=== PATIENT | male | born 1960 | race Asian ===

== ENCOUNTER 2020-06-03 15:41 | Inpatient (IN) | payer OTHER, SELFPAY ==
[~2020-06-03] VITALS: Ht 167.6 cm; Wt 89.4 kg
[2020-06-03 15:46] VITALS: Ht 167.6 cm; Wt 89.4 kg
[2020-06-03 16:38] LABS: BASOPHIL % 0.2 % (0-2); PLATELET COUNT 133 x10^3mcL (130-400); RED CELL DISTRIBUTION WIDTH 12.6 % (11.5-14.5)
[2020-06-03 16:56] LABS: CALCIUM 8.1 mg/dL (8.5-10.1); CARBON DIOXIDE 23.8 mmol/L (21-32); CHLORIDE SERUM 102 mmol/L (98-107); CREATININE SERUM 1.1 mg/dL (0.7-1.3); GFR1 > 60 mL/min; GLUCOSE SERUM 141 mg/dL (74-106); POTASSIUM SERUM 3.3 mmol/L (3.5-5.1); SODIUM SERUM 137 mmol/L (136-145)
[2020-06-03 17:00] LABS: ALBUMIN 3.5 g/dL (3.4-5.0); ALKALINE PHOSPHATASE 70 U/L (46-116); ALT/SGPT 40 U/L (16-63); AST/SGOT 43 U/L (15-37); BILIRUBIN TOTAL 0.4 mg/dL (0.20-1.00); C REACTIVE PROTEIN 8.9 mg/dL (<=0.9); LACTIC DEHYDROGENASE (LDH) 275 U/L (100-190); TOTAL PROTEIN, SERUM 7.4 g/dL (6.4-8.2)
[2020-06-03] MEDS ORDERED: FORTAMET500 M1 PO (17:20)
[2020-06-03] MEDS ORDERED: ASPIRIN FOR CHI81 M1 PO (17:21)
[2020-06-03] MEDS ORDERED: ENALAPRIL MALEA10 MG (17:21)
[2020-06-03 17:22] LABS: UA SPECIFIC GRAVITY >=1.030 (1.005-1.035); microscopic required? YES; urine erythrocyte NEGATIVE (NEGATIVE)
[2020-06-03 20:17] VITALS: BP 134/67
[2020-06-04 05:50] VITALS: BP 143/75
[2020-06-04 06:59] LABS: BASOPHIL % 0.3 % (0-2); PLATELET COUNT 131 x10^3mcL (130-400); RED CELL DISTRIBUTION WIDTH 12.9 % (11.5-14.5)
[2020-06-04 07:35] LABS: ALKALINE PHOSPHATASE 70 U/L (46-116); ALT/SGPT 42 U/L (16-63); AST/SGOT 52 U/L (15-37); BILIRUBIN TOTAL 0.37 mg/dL (0.20-1.00); CALCIUM 8.2 mg/dL (8.5-10.1); CARBON DIOXIDE 25.2 mmol/L (21-32); CHLORIDE SERUM 102 mmol/L (98-107); CREATININE SERUM 1.1 mg/dL (0.7-1.3); GFR1 > 60 mL/min; GLUCOSE SERUM 164 mg/dL (74-106); POTASSIUM SERUM 3.9 mmol/L (3.5-5.1); SODIUM SERUM 139 mmol/L (136-145); TOTAL PROTEIN, SERUM 7.1 g/dL (6.4-8.2)
[2020-06-04 07:37] LABS: ALBUMIN 3.1 g/dL (3.4-5.0)
[2020-06-04 08:30] VITALS: BP 150/71
[2020-06-04 12:16] VITALS: BP 123/72
[2020-06-04 16:00] VITALS: BP 123/72
[2020-06-04 16:34] VITALS: BP 139/82
[2020-06-04 21:10] VITALS: BP 134/77
[2020-06-05 04:58] VITALS: BP 155/78
[2020-06-05 07:04] LABS: BILIRUBIN DIRECT 0.18 mg/dL (0.0-0.2); BILIRUBIN TOTAL 0.4 mg/dL (0.20-1.00); TOTAL PROTEIN, SERUM 7.6 g/dL (6.4-8.2)
[2020-06-05 07:05] LABS: ALBUMIN 3.3 g/dL (3.4-5.0)
[2020-06-05 07:31] LABS: ALKALINE PHOSPHATASE 73 U/L (46-116); ALT/SGPT 45 U/L (16-63); AST/SGOT 71 U/L (15-37); BILIRUBIN TOTAL 0.4 mg/dL (0.20-1.00); CALCIUM 8.7 mg/dL (8.5-10.1); CARBON DIOXIDE 26.2 mmol/L (21-32); CHLORIDE SERUM 102 mmol/L (98-107); GFR1 > 60 mL/min; GLUCOSE SERUM 151 mg/dL (74-106); MAGNESIUM 2.2 mg/dL (1.8-2.4); SODIUM SERUM 138 mmol/L (136-145); TOTAL PROTEIN, SERUM 7.6 g/dL (6.4-8.2)
[2020-06-05 07:33] LABS: ALBUMIN 3.3 g/dL (3.4-5.0)
[2020-06-05 07:49] LABS: BASOPHIL % 0.2 % (0-2); PLATELET COUNT 167 x10^3mcL (130-400); RED CELL DISTRIBUTION WIDTH 11.9 % (11.5-14.5)
[2020-06-05 08:35] VITALS: BP 136/71
[2020-06-05 11:23] VITALS: BP 132/78
[2020-06-05 16:11] VITALS: BP 141/72
[2020-06-05 21:23] VITALS: BP 142/71
[2020-06-06 05:56] VITALS: BP 1286/64
[2020-06-06 07:33] LABS: BASOPHIL % 0.2 % (0-2); PLATELET COUNT 207 x10^3mcL (130-400); RED CELL DISTRIBUTION WIDTH 12.2 % (11.5-14.5)
[2020-06-06 07:37] LABS: ALBUMIN 3.3 g/dL (3.4-5.0); ALKALINE PHOSPHATASE 83 U/L (46-116); ALT/SGPT 62 U/L (16-63); AST/SGOT 95 U/L (15-37); BILIRUBIN TOTAL 0.4 mg/dL (0.20-1.00); CALCIUM 8.6 mg/dL (8.5-10.1); CHLORIDE SERUM 103 mmol/L (98-107); CREATININE SERUM 1.1 mg/dL (0.7-1.3); GFR1 > 60 mL/min; GLUCOSE SERUM 163 mg/dL (74-106); MAGNESIUM 2.5 mg/dL (1.8-2.4); POTASSIUM SERUM 4.1 mmol/L (3.5-5.1); SODIUM SERUM 142 mmol/L (136-145); TOTAL PROTEIN, SERUM 7.7 g/dL (6.4-8.2)
[2020-06-06 07:45] LABS: BILIRUBIN DIRECT 0.21 mg/dL (0.0-0.2); BILIRUBIN TOTAL 0.4 mg/dL (0.20-1.00); TOTAL PROTEIN, SERUM 7.7 g/dL (6.4-8.2)
[2020-06-06 07:49] LABS: ALBUMIN 3.3 g/dL (3.4-5.0)
[2020-06-06 08:37] VITALS: BP 147/65
[2020-06-06 12:35] VITALS: BP 120/72
[2020-06-06 16:50] VITALS: BP 131/76
[2020-06-06 21:42] VITALS: BP 133/78
[2020-06-07 06:12] VITALS: BP 143/45
[2020-06-07 07:35] LABS: ALKALINE PHOSPHATASE 89 U/L (46-116); ALT/SGPT 103 U/L (16-63); AST/SGOT 140 U/L (15-37); BILIRUBIN TOTAL 0.5 mg/dL (0.20-1.00); CALCIUM 8.3 mg/dL (8.5-10.1); CARBON DIOXIDE 25.6 mmol/L (21-32); CHLORIDE SERUM 106 mmol/L (98-107); GFR1 > 60 mL/min; GLUCOSE SERUM 148 mg/dL (74-106); MAGNESIUM 2.9 mg/dL (1.8-2.4); POTASSIUM SERUM 4.1 mmol/L (3.5-5.1); SODIUM SERUM 142 mmol/L (136-145); TOTAL PROTEIN, SERUM 6.9 g/dL (6.4-8.2)
[2020-06-07 08:00] LABS: ALBUMIN 3.1 g/dL (3.4-5.0); BILIRUBIN DIRECT 0.21 mg/dL (0.0-0.2); BILIRUBIN TOTAL 0.5 mg/dL (0.20-1.00); TOTAL PROTEIN, SERUM 6.5 g/dL (6.4-8.2)
[2020-06-07 08:34] VITALS: BP 140/90
[2020-06-07 08:58] LABS: BASOPHIL % 0.2 % (0-2); PLATELET COUNT 214 x10^3mcL (130-400); RED CELL DISTRIBUTION WIDTH 13.4 % (11.5-14.5)
[2020-06-07 13:06] VITALS: BP 138/70
[2020-06-07 16:37] VITALS: BP 123/67
[2020-06-07 22:04] VITALS: BP 121/61
[2020-06-08 06:02] VITALS: BP 130/73
[2020-06-08 08:16] LABS: ALBUMIN 3.1 g/dL (3.4-5.0); ALKALINE PHOSPHATASE 115 U/L (46-116); ALT/SGPT 111 U/L (16-63); AST/SGOT 103 U/L (15-37); BILIRUBIN TOTAL 0.81 mg/dL (0.20-1.00); CALCIUM 8.8 mg/dL (8.5-10.1); CARBON DIOXIDE 27.7 mmol/L (21-32); CHLORIDE SERUM 107 mmol/L (98-107); GFR1 > 60 mL/min; GLUCOSE SERUM 139 mg/dL (74-106); MAGNESIUM 2.7 mg/dL (1.8-2.4); POTASSIUM SERUM 4.6 mmol/L (3.5-5.1); SODIUM SERUM 144 mmol/L (136-145); TOTAL PROTEIN, SERUM 7.4 g/dL (6.4-8.2)
[2020-06-08 08:30] VITALS: BP 123/61
[2020-06-08 09:38] LABS: BILIRUBIN DIRECT 0.27 mg/dL (0.0-0.2); BILIRUBIN TOTAL 0.8 mg/dL (0.20-1.00); TOTAL PROTEIN, SERUM 7.3 g/dL (6.4-8.2)
[2020-06-08 09:42] LABS: ALBUMIN 3.3 g/dL (3.4-5.0)
[2020-06-08 09:58] LABS: BASOPHIL % 0.1 % (0-2); PLATELET COUNT 255 x10^3mcL (130-400)
[2020-06-08 12:45] VITALS: BP 144/73
[2020-06-08 16:45] VITALS: BP 140/73
[2020-06-08 21:15] VITALS: BP 136/71
[2020-06-09 05:25] VITALS: BP 135/75
[2020-06-09 08:18] VITALS: BP 91/48
[2020-06-09 13:16] VITALS: BP 128/72
[2020-06-09 16:08] VITALS: BP 103/56
[2020-06-09 19:30] VITALS: BP 123/67
[2020-06-10 05:55] VITALS: BP 134/76
[2020-06-10 07:49] LABS: CALCIUM 8.8 mg/dL (8.5-10.1); CARBON DIOXIDE 23.1 mmol/L (21-32); CHLORIDE SERUM 102 mmol/L (98-107); CREATININE SERUM 1.1 mg/dL (0.7-1.3); GFR1 > 60 mL/min; GLUCOSE SERUM 134 mg/dL (74-106); MAGNESIUM 2.6 mg/dL (1.8-2.4); SODIUM SERUM 138 mmol/L (136-145)
[2020-06-10 08:21] LABS: PLATELET COUNT 314 x10^3mcL (130-400); RED CELL DISTRIBUTION WIDTH 12.4 % (11.5-14.5)
[2020-06-10 08:33] VITALS: BP 153/76
[2020-06-10 09:01] LABS: BASOPHIL % 0 % (0-2)
[2020-06-10 12:18] VITALS: BP 114/54
[2020-06-10 16:19] VITALS: BP 121/65
[2020-06-10 19:10] VITALS: BP 118/72
[2020-06-11 05:56] VITALS: BP 127/75
[2020-06-11 07:32] LABS: BASOPHIL % 0.1 % (0-2); PLATELET COUNT 356 x10^3mcL (130-400); RED CELL DISTRIBUTION WIDTH 12.4 % (11.5-14.5)
[2020-06-11 07:45] LABS: ALKALINE PHOSPHATASE 145 U/L (46-116); ALT/SGPT 54 U/L (16-63); AST/SGOT 63 U/L (15-37); BILIRUBIN DIRECT 0.22 mg/dL (0.0-0.2); BILIRUBIN TOTAL 0.92 mg/dL (0.20-1.00); CARBON DIOXIDE 23.9 mmol/L (21-32); CHLORIDE SERUM 104 mmol/L (98-107); GFR1 > 60 mL/min; GLUCOSE SERUM 119 mg/dL (74-106); POTASSIUM SERUM 4.5 mmol/L (3.5-5.1); SODIUM SERUM 140 mmol/L (136-145); TOTAL PROTEIN, SERUM 7.4 g/dL (6.4-8.2)
[2020-06-11 07:56] LABS: ALBUMIN 2.7 g/dL (3.4-5.0)
[2020-06-11 09:11] VITALS: BP 117/68
[2020-06-11 12:00] VITALS: BP 114/59
[2020-06-11 15:47] VITALS: BP 107/53
[2020-06-11 20:52] VITALS: BP 109/59
[2020-06-12 05:19] VITALS: BP 114/52
[2020-06-12 07:53] VITALS: BP 118/62
[2020-06-12 12:20] VITALS: BP 131/69
[2020-06-12 15:54] VITALS: BP 100/59
[2020-06-12 21:15] VITALS: BP 114/59
[2020-06-13 05:25] VITALS: BP 125/73
[2020-06-13 07:22] LABS: BASOPHIL % 1.6 % (0-2); PLATELET COUNT 344 x10^3mcL (130-400); RED CELL DISTRIBUTION WIDTH 13.3 % (11.5-14.5)
[2020-06-13 07:40] LABS: CALCIUM 8.9 mg/dL (8.5-10.1); CARBON DIOXIDE 25.2 mmol/L (21-32); CHLORIDE SERUM 100 mmol/L (98-107); CREATININE SERUM 1.2 mg/dL (0.7-1.3); GFR1 > 60 mL/min; GLUCOSE SERUM 132 mg/dL (74-106); MAGNESIUM 2.6 mg/dL (1.8-2.4); POTASSIUM SERUM 4.7 mmol/L (3.5-5.1); SODIUM SERUM 136 mmol/L (136-145)
[2020-06-13 08:44] VITALS: BP 129/79
[2020-06-13 12:19] VITALS: BP 130/69
[2020-06-13 15:33] VITALS: BP 117/68
[2020-06-13 21:36] VITALS: BP 116/64
[2020-06-14 05:52] VITALS: BP 130/73
[2020-06-14 07:19] LABS: BASOPHIL % 0.1 % (0-2); PLATELET COUNT 325 x10^3mcL (130-400); RED CELL DISTRIBUTION WIDTH 12.2 % (11.5-14.5)
[2020-06-14 07:31] LABS: CALCIUM 8.3 mg/dL (8.5-10.1); CHLORIDE SERUM 99 mmol/L (98-107); CREATININE SERUM 1.2 mg/dL (0.7-1.3); GFR1 > 60 mL/min; GLUCOSE SERUM 190 mg/dL (74-106); MAGNESIUM 2.7 mg/dL (1.8-2.4); POTASSIUM SERUM 4.1 mmol/L (3.5-5.1); SODIUM SERUM 134 mmol/L (136-145)
[2020-06-14 08:41] VITALS: BP 138/85
[2020-06-14 11:43] VITALS: BP 137/73
[2020-06-14 16:46] VITALS: BP 123/72
[2020-06-14 21:33] VITALS: BP 112/66
[2020-06-15 05:42] VITALS: BP 111/62
[2020-06-15 08:02] LABS: CALCIUM 8.5 mg/dL (8.5-10.1); CARBON DIOXIDE 25.1 mmol/L (21-32); CHLORIDE SERUM 98 mmol/L (98-107); CREATININE SERUM 1.1 mg/dL (0.7-1.3); GFR1 > 60 mL/min; GLUCOSE SERUM 134 mg/dL (74-106); MAGNESIUM 2.6 mg/dL (1.8-2.4); POTASSIUM SERUM 4.6 mmol/L (3.5-5.1); SODIUM SERUM 133 mmol/L (136-145)
[2020-06-15 09:18] LABS: PLATELET COUNT 193 x10^3mcL (130-400); RED CELL DISTRIBUTION WIDTH 13.2 % (11.5-14.5)
[2020-06-15 09:39] VITALS: BP 115/63
[2020-06-15 11:45] LABS: BAND NEUTROPHIL 2 % (0-10); MONOCYTE 2 % (0-7); SEGMENTED NEUTROPHILS 92 % (37-75); rbc morphology (normal/abnorm) NORMAL (NORMAL)
[2020-06-15 11:46] LABS: PLATELET MORPHOLOGY PLATELETS NORMAL
[2020-06-15 13:36] VITALS: BP 128/68
[2020-06-15 17:18] VITALS: BP 110/68
[2020-06-16 06:17] VITALS: BP 135/76
[2020-06-16 08:03] LABS: CALCIUM 8.4 mg/dL (8.5-10.1); CHLORIDE SERUM 98 mmol/L (98-107); CREATININE SERUM 1.1 mg/dL (0.7-1.3); GFR1 > 60 mL/min; GLUCOSE SERUM 150 mg/dL (74-106); MAGNESIUM 2.7 mg/dL (1.8-2.4); POTASSIUM SERUM 4.2 mmol/L (3.5-5.1); SODIUM SERUM 137 mmol/L (136-145)
[2020-06-16 08:50] VITALS: BP 126/75
[2020-06-16 10:27] LABS: PLATELET COUNT 155 x10^3mcL (130-400); RED CELL DISTRIBUTION WIDTH 12.6 % (11.5-14.5)
[2020-06-16 12:10] LABS: BASOPHIL % 0 % (0-2)
[2020-06-16 12:34] VITALS: BP 121/69
[2020-06-16 17:49] VITALS: BP 139/77
[2020-06-16 21:21] VITALS: BP 138/76
[2020-06-17 06:36] VITALS: BP 13/74; BP 134/74
[2020-06-17 06:48] LABS: BASOPHIL % 0.2 % (0-2); PLATELET COUNT 143 x10^3mcL (130-400); RED CELL DISTRIBUTION WIDTH 12.5 % (11.5-14.5)
[2020-06-17 07:23] LABS: CARBON DIOXIDE 29.8 mmol/L (21-32); CHLORIDE SERUM 98 mmol/L (98-107); GLUCOSE SERUM 178 mg/dL (74-106); POTASSIUM SERUM 4.2 mmol/L (3.5-5.1); SODIUM SERUM 137 mmol/L (136-145)
[2020-06-17 07:24] LABS: CALCIUM 8.5 mg/dL (8.5-10.1); CREATININE SERUM 0.9 mg/dL (0.7-1.3); GFR1 > 60 mL/min; MAGNESIUM 2.8 mg/dL (1.8-2.4)
[2020-06-17 09:03] VITALS: BP 145/80
[2020-06-17 12:07] VITALS: BP 156/73
[2020-06-17 16:30] VITALS: BP 130/70
[2020-06-17 22:03] VITALS: BP 147/87
[2020-06-18 06:14] VITALS: BP 149/83
[2020-06-18 08:33] VITALS: BP 145/90
[2020-06-18 08:54] LABS: PLATELET COUNT 134 x10^3mcL (152-348)
[2020-06-18 08:57] LABS: RED CELL DISTRIBUTION WIDTH 13.4 % (12.1-16.2)
[2020-06-18 09:18] LABS: ALKALINE PHOSPHATASE 212 U/L (46-116); ALT/SGPT 66 U/L (16-63); AST/SGOT 51 U/L (15-37); BILIRUBIN TOTAL 1.39 mg/dL (0.20-1.00); CALCIUM 8.8 mg/dL (8.5-10.1); CARBON DIOXIDE 26.6 mmol/L (21-32); CHLORIDE SERUM 103 mmol/L (98-107); GFR1 > 60 mL/min; GLUCOSE SERUM 235 mg/dL (74-106); MAGNESIUM 2.6 mg/dL (1.8-2.4); POTASSIUM SERUM 4.2 mmol/L (3.5-5.1); SODIUM SERUM 139 mmol/L (136-145); TOTAL PROTEIN, SERUM 6.6 g/dL (6.4-8.2)
[2020-06-18 09:19] LABS: ALBUMIN 1.8 g/dL (3.4-5.0)
[2020-06-18 12:38] VITALS: BP 137/90
[2020-06-18 15:15] VITALS: BP 162/107
[2020-06-18 16:00] VITALS: BP 180/87
[2020-06-18 19:40] LABS: CALCIUM 8.7 mg/dL (8.5-10.1); CARBON DIOXIDE 24.6 mmol/L (21-32); CHLORIDE SERUM 102 mmol/L (98-107); GFR1 37 mL/min; GLUCOSE SERUM 412 mg/dL (74-106); SODIUM SERUM 141 mmol/L (136-145)
[2020-06-18 19:44] VITALS: BP 87/54
[2020-06-18 19:47] LABS: POTASSIUM SERUM 6.2 mmol/L (3.5-5.1)
[2020-06-18 23:59] LABS: CALCIUM 8.7 mg/dL (8.5-10.1); CARBON DIOXIDE 21.8 mmol/L (21-32); CREATININE SERUM 2.4 mg/dL (0.7-1.3)
[2020-06-19] VITALS (10 sets, daily range): BP systolic 76–121; BP diastolic 42–89
[2020-06-19 00:06] LABS: POTASSIUM SERUM 6.2 mmol/L (3.5-5.1)
[2020-06-19 06:50] LABS: PLATELET COUNT 158 x10^3mcL (152-348)
[2020-06-19 06:53] LABS: RED CELL DISTRIBUTION WIDTH 14.2 % (12.1-16.2)
[2020-06-19 07:19] LABS: BILIRUBIN TOTAL 3.17 mg/dL (0.20-1.00); CALCIUM 8.2 mg/dL (8.5-10.1); CARBON DIOXIDE 24.5 mmol/L (21-32); CREATININE SERUM 2.9 mg/dL (0.7-1.3); MAGNESIUM 2.6 mg/dL (1.8-2.4); POTASSIUM SERUM 5.3 mmol/L (3.5-5.1); TOTAL PROTEIN, SERUM 6.2 g/dL (6.4-8.2)
[2020-06-19 07:20] LABS: ALBUMIN 1.5 g/dL (3.4-5.0)
[2020-06-19 12:59] LABS: SEGMENTED NEUTROPHILS 96.6 % (37-75)
[2020-06-19 13:00] LABS: MONOCYTE 1.2 % (0-7); rbc morphology (normal/abnorm) NORMAL (NORMAL)
[2020-06-20] VITALS (9 sets, daily range): BP systolic 94–118; BP diastolic 38–61
[2020-06-20 02:29] LABS: PLATELET COUNT 152 x10^3mcL (130-400); RED CELL DISTRIBUTION WIDTH 14.2 % (11.5-14.5)
[2020-06-20 02:42] LABS: BAND NEUTROPHIL 1 % (0-10); BASOPHIL 0 % (0-2); MONOCYTE 2 % (0-7); SEGMENTED NEUTROPHILS 93 % (37-75); rbc morphology (normal/abnorm) NORMAL (NORMAL)
[2020-06-20 02:49] LABS: BILIRUBIN TOTAL 3.62 mg/dL (0.20-1.00); CARBON DIOXIDE 17.9 mmol/L (21-32); MAGNESIUM 2.6 mg/dL (1.8-2.4)
[2020-06-20 02:55] LABS: ALBUMIN 1.2 g/dL (3.4-5.0); TOTAL PROTEIN, SERUM 5.9 g/dL (6.4-8.2)
[2020-06-20 02:57] LABS: CREATININE SERUM 6.8 mg/dL (0.7-1.3)
== END 2020-06-20 22:15 | disposition expired | DRG 871 ==
LOC: ED 15:41 → IC 17:47 → DU 17:47 → IC 06-18 15:11
PROVIDERS: Emergency Medicine; Internal Medicine; Internal Medicine Pulmonary Disease; ADMIT Hospitalist; ATTEND Internal Medicine Infectious Disease
PROC: XW033E5 Introduction of Remdesivir Anti-infective into Peripheral Vein, Percutaneous Approach, New Technology Group 5 (ICD-10-PCS; principal; 2020-06-04)
PROC: 5A09357 Assistance with Respiratory Ventilation, Less than 24 Consecutive Hours, Continuous Positive Airway Pressure (ICD-10-PCS; 2020-06-06)
PROC: 5A09357 Assistance with Respiratory Ventilation, Less than 24 Consecutive Hours, Continuous Positive Airway Pressure (ICD-10-PCS; 2020-06-07)
PROC: XW13325 Transfusion of Convalescent Plasma (Nonautologous) into Peripheral Vein, Percutaneous Approach, New Technology Group 5 (ICD-10-PCS; 2020-06-08)
PROC: 5A09357 Assistance with Respiratory Ventilation, Less than 24 Consecutive Hours, Continuous Positive Airway Pressure (ICD-10-PCS; 2020-06-09)
PROC: 5A09357 Assistance with Respiratory Ventilation, Less than 24 Consecutive Hours, Continuous Positive Airway Pressure (ICD-10-PCS; 2020-06-10)
PROC: 5A09357 Assistance with Respiratory Ventilation, Less than 24 Consecutive Hours, Continuous Positive Airway Pressure (ICD-10-PCS; 2020-06-11)
PROC: 5A09357 Assistance with Respiratory Ventilation, Less than 24 Consecutive Hours, Continuous Positive Airway Pressure (ICD-10-PCS; 2020-06-15)
PROC: 5A09357 Assistance with Respiratory Ventilation, Less than 24 Consecutive Hours, Continuous Positive Airway Pressure (ICD-10-PCS; 2020-06-16)
PROC: 5A09357 Assistance with Respiratory Ventilation, Less than 24 Consecutive Hours, Continuous Positive Airway Pressure (ICD-10-PCS; 2020-06-17)
PROC: 5A09357 Assistance with Respiratory Ventilation, Less than 24 Consecutive Hours, Continuous Positive Airway Pressure (ICD-10-PCS; 2020-06-18)
PROC: 5A1945Z Respiratory Ventilation, 24-96 Consecutive Hours (ICD-10-PCS; 2020-06-18)
PROC: 0BH17EZ Insertion of Endotracheal Airway into Trachea, Via Natural or Artificial Opening (ICD-10-PCS; 2020-06-18)
DX: A41.9 Sepsis, unspecified organism (principal); U07.1 COVID-19; J12.89 Other viral pneumonia; J96.01 Acute respiratory failure with hypoxia; G93.41 Metabolic encephalopathy; R65.21 Severe sepsis with septic shock; N17.0 Acute kidney failure with tubular necrosis; I42.9 Cardiomyopathy, unspecified; Z66 Do not resuscitate; E66.9 Obesity, unspecified; Z71.3 Dietary counseling and surveillance; Z68.31 Body mass index [BMI] 31.0-31.9, adult; Z87.891 Personal history of nicotine dependence; I12.9 Hypertensive chronic kidney disease with stage 1 through stage 4 chronic kidney disease, or unspecified chronic kidney disease; E11.22 Type 2 diabetes mellitus with diabetic chronic kidney disease; N18.9 Chronic kidney disease, unspecified; R13.10 Dysphagia, unspecified; I51.4 Myocarditis, unspecified
CPT/HCPCS: 31500; 36600; 82962; 83880; 85378; 87804; 90732; 94150; A4628; C9113; G0378; J0282; J0456; J0610; J0696; J1100; J1644; J1650; J1815; J1940; J2060; J2270; J2370; J2405; J2543; J2704; J3010; J3490; J3535; J7030; J7040; J7050; J7060; J7131; U0003